=== PATIENT | female | born 1975 | race Two or more races ===

== ENCOUNTER → 2025-09-17 | Outpatient (CLI) | payer MEDICARE, MEDICAID, SELFPAY ==
--- NOTE | 2025-09-17 13:00 | XR_ITS ---
Examination: Abdomen sonogram, Limited Date and time of exam: September 17, 2025, 1307 hours INDICATIONS: Umbilical pain beginning 1 month ago Technique: Real-time mercedes scale transabdominal sonographic images of the upper abdomen obtained. Findings: Hernia defect in the umbilical region 15 x 12 x 19 mm, likely containing bowel IMPRESSION: Bowel-containing umbilical hernia defect, consider CT abdomen pelvis without intravenous contrast follow-up
== END | disposition home or self-care (01) ==
PROVIDERS: PCP Physician Assistant; Referring Provider Physician Assistant; Visit Provider Physician Assistant
DX: K42.9 Umbilical hernia without obstruction or gangrene (principal)
CPT/HCPCS: 76705